=== PATIENT | male | born 1990 | race Asian ===

== ENCOUNTER 2021-04-15 12:03 | Emergency (ER) | payer OTHER ==
[2021-04-15] MEDS ORDERED: KETOROLAC 30 MG/ML VIAL IVP STA (12:46)
--- NOTE | 2021-04-15 12:49 | ED Physician Documentation ---
History of Present Illness - Stated complaint Stated Complaint: HEAD PX, HIGH BP, FATIGUE - Chief complaint Chief Complaint: Cardiac - History obtained from History obtained from: Patient - History of Present Illness Timing: Last night Pain level max: 3 Pain level now: 1 - Additonal information Additional information: Patient is a 30-year-old male who presents to the emergency department stating that he has not been sleeping well at night for the last several weeks. He states that his is and gets up a lot at night and wakes him up. He states that he has had a posterior headache for the past few days. Took Tylenol without relief. He states that occasionally he has sharp central chest pain. Lasts for 1 to 2 seconds at a time. Nothing makes it better or worse. Has been told that he has palpitations and is awaiting a cardiology visit for a heart monitor. Currently he has a mild occipital headache. No fevers. No chills. No nausea or vomiting. No recent illness. No trauma. No numbness or tingling. Review of Systems Ten Systems: 10 systems reviewed and negative Constitutional: denies: Fever, Chills Ears: denies: Ear pain Nose: denies: Rhinorrhea / runny nose, Congestion Respiratory: denies: Cough GI: denies: Abdominal Pain, Nausea, Vomiting, Diarrhea Skin: denies: Rash Musculoskeletal: denies: Neck pain, Back pain Neurologic: denies: Focal weakness, Numbness, Head injury PD PAST MEDICAL HISTORY - Past Medical History Past Medical History: No - Past Surgical History Past Surgical History: No - Present Medications Home Medications: Ambulatory Orders Medication Instructions Recorded Confirmed No Known Home Medications 04/15/21 04/15/21 - Allergies Allergies/Adverse Reactions: Allergies Allergy/AdvReac Type Severity Reaction Status Date / Time No Known Drug Allergies Allergy Verified 04/15/21 12:22 - Living Situation Living Situation: reports: With family Living Arrangement: reports: At home - Social History Does the pt smoke?: No Does the pt have substance abuse?: No - Family History Family history: reports: Non contributory PD ED PE NORMAL - Vitals Vital signs reviewed: Yes - General General: Alert and oriented X 3, No acute distress - HEENT HEENT: Atraumatic, PERRL, EOMI, Ears normal, Moist mucous membranes, Pharynx benign - Neck Neck: Supple, no meningeal sign, No bony TTP - Cardiac Cardiac: RRR, Strong equal pulses - Respiratory Respiratory: No respiratory distress, Clear bilaterally - Abdomen Abdomen: Soft, Non tender, Non distended - Derm Derm: Warm and dry, No rash - Extremities Extremities: No edema, No calf tenderness / cord - Neuro Neuro: Alert and oriented X 3, 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, No motor deficit, No sensory deficit, Normal speech - Psych Psych: Normal mood, Normal affect Results - Vitals Vitals: Vital Signs - 24 hr 04/15/21 12:23 Temperature 36.6 C Heart Rate 70 Respiratory 18 Rate Blood Pressure 136/96 H O2 Saturation 98 Oxygen O2 Source Room air - EKG (time done) 1224 Rate: Rate (enter#) (73) Rhythm: NSR [place]: Normal Intervals: Normal [place] QRS: Normal Ischemia: ST elevation c/w repol, Q waves (II, III, aVF) - Labs Labs: Laboratory Tests 04/15/21 04/15/21 04/15/21 12:44 12:44 12:44 WBC 6.0 RBC 5.83 Hgb 13.6 L Hct 44.7 MCV 76.7 L MCH 23.3 L MCHC 30.4 L RDW 13.2 Plt Count 230 MPV 10.8 Neut # (Auto) 2.9 Lymph # (Auto) 2.6 [place] # (Auto) 0.4 Eos # (Auto) 0.1 Baso # (Auto) 0.0 Absolute Nucleated RBC 0.00 Nucleated RBC % 0.0 Sodium 139 Potassium 3.7 Chloride 97 L Carbon Dioxide 29 Anion Gap 13.0 BUN 12 Creatinine 0.8 Estimated GFR (MDRD) 115 Glucose 92 Calcium 9.5 Total Bilirubin 0.5 AST 37 ALT 76 H Alkaline Phosphatase 64 Troponin I High Sens < 2.3 L Total Protein 8.7 H Albumin 5.1 Globulin 3.6 Albumin/Globulin Ratio 1.4 Lipase 40 - Rads (name of study) cxr Radiology: Final report received, EMP read contemporaneously, See rad report (1.No acute cardiopulmonary abnormality. ) PD MEDICAL DECISION MAKING - ED course Complexity details: reviewed results, re-evaluated patient, considered differential (No ST elevation [place], no aortic dissection, no PE, no tension pneumothorax, no aortic aneurysm), d/w patient ED course: 22-year-old male with a posterior headache, resolved with Toradol. Appears to be likely a stress related headache. No evidence of meningitis, subarachnoid hemorrhage. Normal cranial nerve testing. Normal cerebellar testing. Chest pain is sharp and lasts for 1 to 2 seconds at a time, it sounds more like palpitations. He is scheduled for an echocardiogram and Holter monitor. Patient is currently asymptomatic. We will have him follow-up with his doctor for further care. No acute findings on telemetry here. Patient counseled regarding signs and symptoms for which I believe and urgent re-evaluation would be necessary. Patient with good understanding of and agreement to plan and is comfortable going home at this time This document was made in part using voice recognition software. While efforts are made to proofread this document, sound alike and grammatical errors may occur. Departure - Departure Disposition: 01 Home, Self Care Clinical Impression: Palpitations Headache Qualifiers: Headache type: unspecified Headache chronicity pattern: acute headache Intractability: not intractable Qualified Code(s): R51.9 - Headache, unspecified Condition: Good Instructions: ED Cephalgia Unspecified, ED Palpitations Follow-Up: Nicci Sullivan MD [Primary Care Provider] - Within 1 week Comments: Please follow-up with your doctor as scheduled. Return if you worsen. It is important that you schedule the echocardiogram and your Holter monitor with your doctor. Your testing does not show any acute abnormality today.
[2021-04-15 12:51] LABS: BASOPHILS % (AUTO) 0.7 %; EOSINOPHILS # (AUTO) 0.1 10^3/uL (0.0-0.7); HCT - HEMATOCRIT 44.7 % (42.0-52.0); HGB - HEMOGLOBIN 13.6 g/dL (14.0-18.0); LYMPHOCYTES # (AUTO) 2.6 10^3/uL (1.5-3.5); MEAN CORPUSCULAR HEMOGLOBIN 23.3 pg (27.0-31.0); MEAN CORPUSCULAR HGB CONC 30.4 g/dL (32.0-36.0); MEAN CORPUSCULAR VOLUME 76.7 fL (80.0-94.0); MEAN PLATELET VOLUME 10.8 fL (7.4-11.4); MONOCYTES # (AUTO) 0.4 10^3/uL (0.0-1.0); MONOCYTES % (AUTO) 6.6 %; NEUTROPHILS # (AUTO) 2.9 10^3/uL (1.5-6.6); NEUTROPHILS % (AUTO) 47.4 %; PLT - PLATELET COUNT 230 10^3/uL (130-450); RED BLOOD COUNT 5.83 10^6/uL (4.70-6.10); RED CELL DISTRIBUTION WIDTH 13.2 % (12.0-15.0)
--- NOTE | 2021-04-15 13:16 | XRAY Report ---
PROCEDURE: Chest 1 View X-Ray INDICATIONS: Chest Pain TECHNIQUE: One view of the chest was acquired. COMPARISON: None. FINDINGS: SUPPORT DEVICES: None. LUNG/PLEURA: No focal consolidation or pulmonary edema. No pleural effusion or space-occupying pneumo thorax. MEDIASTINUM: The cardiomediastinal silhouette is within normal limits. BONES/SOFT TISSUES: No acute abnormality. IMPRESSION: 1.No acute cardiopulmonary abnormality. Reviewed by: Les Sorenson MD on 04/15/2021 1:15 PM PDT Approved by: Les Sorenson MD on 04/15/2021 1:15 PM PDT Station ID: [id number]
[2021-04-15 13:20] LABS: ALBUMIN 5.1 g/dL (3.2-5.5); ALBUMIN/GLOBULIN RATIO 1.4 (1.0-2.2); BILIRUBIN,TOTAL 0.5 mg/dL (0.2-1.0); CALCIUM 9.5 mg/dL (8.5-10.3); CREATININE 0.8 mg/dL (0.6-1.2); POTASSIUM 3.7 mmol/L (3.5-5.0); TOTAL PROTEIN 8.7 g/dL (6.7-8.2)
[2021-04-15 13:55] VITALS: BP 131/95
== END 2021-04-15 14:06 | disposition home or self-care (01) ==
LOC: ED 12:03
DX: R51.9 Headache, unspecified (principal); R00.2 Palpitations; R07.9 Chest pain, unspecified
CPT/HCPCS: 36415; 80053; 83690; 84484; 85025; 93005; 96374; 99284

== ENCOUNTER 2023-09-14 13:18 | Outpatient (CLI) | payer OTHER ==
--- NOTE | 2023-09-17 07:44 | MRI Report ---
PROCEDURE: Lumbar Spine WO INDICATIONS: DORSALGIA TECHNIQUE: Noncontrast sagittal T1 spin echo and T2 fast echo, sagittal STIR, axial T1 and T2 fast spin echo thr ough the lumbar spine. In cases with scoliosis, additional coronal T2 fast spin echo may be performe d. COMPARISON: None. FINDINGS: Image quality: Excellent. Alignment and Curvature: There is normal bony alignment. In the absence of plain films or compariso n it is assumed that there are 5 nonrib-bearing lumbar vertebral bodies and that axial imaging was ob tained from T12-L1 through L5-S1. Bone Marrow: Marrow is of normal overall signal. No acute vertebral body compression fractures. Spinal Cord: Conus medullaris terminates at the L1-L2 level. Visualized cord demonstrates normal si gnal and size. Paraspinous Soft Tissues: No paravertebral masses. T12-L1: Normal in appearance. L1-L2: Normal in appearance. L2-L3: Normal in appearance. L3-L4: Normal in appearance. L4-L5: Normal in appearance. L5-S1: Minimal disc bulge. No canal stenosis or foraminal stenosis. IMPRESSION: No canal stenosis or foraminal stenosis or significant degenerative change. Reviewed by: Andrew Patrick MD on 09/17/2023 7:43 AM PDT Approved by: Andrew Patrick MD on 09/17/2023 7:43 AM PDT Station ID: [id number]
== END 2023-09-14 13:19 | disposition home or self-care (01) ==
LOC: DI 13:18
DX: M54.50 Low back pain, unspecified (principal); G54.9 Nerve root and plexus disorder, unspecified; M79.671 Pain in right foot